=== PATIENT | male | born 1955 | race Caucasian/White ===

== ENCOUNTER → 2019-03-20 | Emergency (ER) | payer OTHER ==
[~2019-03-20] VITALS: Ht 190.5 cm; Wt 107.0 kg
[~2019-03-20] MED LIST: LIDOCAINE HCL 1% LOCAL INJ 20 ML VIAL INJ ONE; MULTI-VITAMIN1 EACH PO; TETANUS/DIPHTHERIA TOX ADULT 0.5 ML SYR IM ONE
--- OUTSIDE RECORDS SUMMARY | 2019-03-20 12:16 | XMS REPORT | Summary of Care ---
Author Author JEFF LARSEN N.P. Organization Unknown Address Unknown Phone Unavailable Care Team Providers Care Fitness Coach Name Role Phone JEFF LARSEN N.P. 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 * Quantity: 20 Refills: 0 LARSEN N.P., JEFF * Start : 01-Nov-2018 Active Ciprofloxacin HCl - 500 MG Oral Tablet TAKE 1 TABLET TWICE DAILY. * Quantity: 28 Refills: 0 LARSEN N.P., JEFF * Start : 07-Nov-2018 Active Pepto-Bismol 262 MG Oral Tablet TAKE ONE TAB ORALLY ONCE OR TWICE A DAY TO PREVENT TRAVELERS' DIARRHEA * Quantity: 1 Refills: 0 LARSEN N.P., JEFF * Start : 07-Nov-2018 Active Allergies and Adverse Reactions Name Dates Details No Known Drug Allergies (Allergy) Status: Active Past Medical History Name Dates Details History of No significant past medical history Status: Resolved Procedures Procedure Dates Details [QH] LIPID PANEL WITH REFLEX TO DIRECT LDL Date: 01-Nov-2018 [QL] CMP W/EGFR Date: 01-Nov-2018 [QL] TSH, 3RD GENERATION W/REFLEX TO FT4 Date: 01-Nov-2018 [QL] CBC (INCLUDES DIFF/PLT) Date: 01-Nov-2018 [QL] PSA, TOTAL Date: 01-Nov-2018 Immunization Name Dates Details Immunizations not documented Social History Name Dates Details - Status: Name Dates Details Former smoker Vital Signs Date Test Result Details [id number] BP Systolic 127 mm[Hg] Status: Comments: Location: LUE; Position: Sitting BP Diastolic 67 mm[Hg] Status: Comments: Location: LUE; Position: Sitting Height 75 in Status: Weight 240.0625 lb Status: Body Mass Index Calculated 30.01 kg/m2 Status: Body Surface Area Calculated 2.37 m2 Status: Temperature 98.7 f Status: Comments: Method: Temporal Heart Rate 77 /min Status: Respiration Rate 14 /min Status: Physical Findings 0 Status: Comments: Alcohol Screen - How many times in the past yr have you had 5 (for M) or 4 (for F) or 4 (for all > 65yrs) or more drinks in a day? [id number] BP Systolic 127 mm[Hg] Status: Comments: Location: LUE; Position: Sitting BP Diastolic 76 mm[Hg] Status: Comments: Location: [facility] [place]; Position: Sitting Height 75 in Status: Weight 236.3125 lb Status: Body Mass Index Calculated 29.54 kg/m2 Status: Body Surface Area Calculated 2.36 m2 Status: Temperature 97.9 f Status: Comments: Method: Temporal Heart Rate 86 /min Status: Respiration Rate 12 /min Status: Physical Findings 0 Status: Comments: Alcohol Screen - How many times in the past yr have you had 5 (for M) or 4 (for F) or 4 (for all > 65yrs) or more drinks in a day? [id number]-Rpx-[id number]:17 Physical Findings 3 Status: Comments: PHQ-9 Adult Depression Screening Results Date Description Value Details Results not documented Plan of Care Name Dates Details Planned Observations Planned Goals not documented Interventions Provided Medication Changes* Ciprofloxacin HCl - 500 MG Oral Tablet - Start * Pepto-Bismol 262 MG Oral Tablet - Start Plan* Gently squeeze towards the center of the boil after using a clean washcloth and hot tap-water for 5-10 min. * Leave drsg intact today (re-enforce w/ more gauze if needed) * OTC IBU 200 MG / TAB 3-4 TABS 3 times a day for 3-5 days. * Remove drsg and packing strip prior to shower MONDAY [tomorrow] nite. * Allow the warm water to run over the wound * wash OVER the wound not INTO the wound * apply dry gauze and/or Telfa as long as wound is open and/or draining. * follow-up if needed next week. Instructions Name Dates Details Instructions not documented Encounters Appointment; JEFF LARSEN NP Encounter Diagnosis: Problem not documented On: 01-Nov-2018 13:45 Appointment; JEFF LARSEN NP Encounter Diagnosis: Problem not documented On: 07-Nov-2018 11:00
--- NOTE | 2019-03-20 14:06 | Diagnostic Imaging Report ---
Exam: Left hand 3 views History: Laceration to index finger, concern for foreign body Comparison: None. Findings: No acute, displaced fracture or dislocation. Joint spaces are well-maintained. No definite soft tissue defect or radiopaque foreign body. Impression: No acute osseous abnormality. No radiopaque soft tissue foreign bodies. Signed by: Dr. Rick Beckman M.D. on 03/20/2019 2:02 PM
== END | disposition home or self-care (01) ==
LOC: ER 12:13
DX: S61.412A Laceration without foreign body of left hand, initial encounter (principal); S66.321A Laceration of extensor muscle, fascia and tendon of left index finger at wrist and hand level, initial encounter
CPT/HCPCS: 99284

== ENCOUNTER → 2019-03-26 | Day surgery (SDC) | payer OTHER ==
[~2019-03-26] MED LIST changes: +BACITRACIN 50,000 UNIT VIAL ONE; +BUPIVACAINE HCL 0.5% INJ 30 ML VIAL INJ ONE; +CEFAZOLIN SOD 1 GM/NS 50ML 50 ML IV ONE; +DEXAMETHASONE SOD PHOS INJ 4 MG/ML VIAL ONE; +FENTANYL CITRATE/PF 100MCG/2 ML INJ ONE; -LIDOCAINE HCL 1% LOCAL INJ 20 ML VIAL INJ ONE; +LIDOCAINE HCL 2% LOCAL INJ 5 ML SDV VIAL INJ ONE; +MIDAZOLAM HCL 2 MG/2 ML VIAL ONE; +MUPIROCIN 2% OINT 22 GM TUBE ONE; +ONDANSETRON HCL INJ 2MG/ML 2ML 2 MG/ML VIAL ONE; +PROPOFOL IV EMULSION 10 MG/ML 20 ML VIAL ONE; +SEVOFLURANE INHAL SOLN 250 ML PEN BTL ONE; -TETANUS/DIPHTHERIA TOX ADULT 0.5 ML SYR IM ONE
--- OUTSIDE RECORDS SUMMARY | 2019-03-26 08:32 | XMS REPORT | Summary of Care ---
Author Author Krys Reveles M.A. Organization Unknown Address [facility] Phone Unavailable Care Team Providers Care Pocket Operator Name Role Phone NII HORAN M.D. 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, A09) Status: Active Medications Name Dates Details Advil 200 MG Oral Capsule as needed Active Multivitamins CAPS TAKE 1 CAPSULE DAILY * Refills: 0 Active Allergies and Adverse Reactions Name Dates Details No Known Drug Allergies (Allergy) Status: Active Past Medical History Name Dates Details History of No significant past medical history Status: Resolved Procedures Procedure Dates Details Procedures not documented Immunization Name Dates Details tetanus toxoid, adsorbed on: Oct-2013 Social History Name Dates Details - Status: Name Dates Details Former smoker Vital Signs Date Test Result Details [id number] BP Systolic 121 mm[Hg] Status: Comments: Location: E; Position: Sitting BP Diastolic 67 mm[Hg] Status: Comments: Location: RUE; Position: Sitting Height 75 in Status: Weight 236 lb Status: Body Mass Index Calculated 29.5 kg/m2 Status: Body Surface Area Calculated 2.35 m2 Status: Temperature 98.1 f Status: Comments: Method: Oral Respiration Rate 16 /min Status: Heart Rate 70 /min Status: Results Date Description Value Details Results not documented Plan of Care Name Dates Details Planned Observations Planned Goals not documented Instructions Name Dates Details Instructions not documented Encounters Appointment; JEFF LARSEN NP Encounter Diagnosis: Problem not documented On: 01-Nov-2018 13:45 Appointment; JEFF LARSEN NP Encounter Diagnosis: Problem not documented On: 07-Nov-2018 11:00 Appointment; NII HORAN M.D. Encounter Diagnosis: Problem not documented On: 20-Mar-2019 11:30
--- OUTSIDE RECORDS SUMMARY | 2019-03-26 08:32 | XMS REPORT ---
[facility] Address Unknown Phone Unavailable Care Team Providers Care Medical Doctor Md Name Role Phone Eric SPENCER Unavailable Unavailable Problems This patient has no known problems. Allergies, Adverse Reactions, Alerts This patient has no known allergies or adverse reactions. Medications This patient has no known medications. Results Test Description Test Time Test Comments Text Results Atomic Results Result Comments HAND 3+ VIEWS LEFT 2019-03-20 14:01:00 [place] [address] Patient Name: DONNIE EPPERSON MR #: [id number] : 1955 Age/Sex: 63/M Req #: [id number] Adm Physician: Ordered by: TANIYA CHRISTINA SEAMAN Report #: [id number] Location: ER Room/Bed: Procedure: [id number] DX/HAND 3+ VIEWS LEFT Exam Date: 03/20/19 Exam Time: 1310 REPORT STATUS: Signed Exam: Left hand 3 views History: Laceration to index finger, concern for foreign body Comparison: None. Findings: No acute, displaced fracture or dislocation. Joint spaces are well-maintained. No definite soft tissue defect or radiopaque foreign body. Impression: No acute osseous abnormality. No radiopaque soft tissue foreign bodies. Signed by: Dr. Donnie Gallego M.D. on 03/20/2019 2:02 PM Dictated By: RUSSELL GALLEGO MD 01 Transcribed By: ZEKE on 03/20/191401 COPY TO: TANIYA CHRISTINA NP
[2019-03-26 12:05] VITALS: BP 121/85
--- NOTE | 2019-03-26 15:25 | Operative Report ---
DATE OF PROCEDURE: 03/26/2019 SURGEON: Tani Liu MD PREOPERATIVE DIAGNOSIS: Laceration of left index finger extensor tendon. POSTOPERATIVE DIAGNOSES: 1. Laceration of left index finger EIP tendon. 2. Laceration of left index finger EDC tendon. PROCEDURE: 1. Repair of left index finger EIP tendon. 2. Repair of left index finger EDC tendon. ANESTHESIA: General. HISTORY: The patient is a 63-year-old [id number] male, who sustained a laceration on the dorsal aspect of the left index finger MP joint approximately one week ago. He was seen at an emergency room and was noted to have no active extension of the index finger. Risks, benefits, and alternatives of surgery were discussed with the patient. He is prepared to undergo the procedure as outlined. PROCEDURE IN DETAIL: The patient was marked preoperatively in the holding area. He was brought to the operating theater and after the induction of adequate general anesthesia, he was prepped and draped in a supine position and a time-out was performed. The procedure was begun by marking out the laceration and extending it proximally and distally in a curvilinear fashion. The left upper extremity was exsanguinated and the tourniquet was inflated to a pressure of 250 mmHg. The previously placed sutures were removed and then the incision was opened and then using a 15 blade, the incisions proximally and distally were incised through the skin and subcutaneous tissues, venous tributaries were controlled with bipolar cautery. Wide blunt dissection then continued and it was fairly evident that the complete extensor tendon mechanism had been sharply lacerated, the joint capsule had been lacerated as well and the joint was open with a large amount of hematoma. The hematoma was removed and then the joint space was copiously irrigated with bacteriostatic saline. The joint capsule was then repaired using 4-0 Vicryl suture in an interrupted fashion. At this point, the proximal edge of the EIP and the EDC tendon were retrieved and brought distally over the MP joint. With the finger in full extension, the distal aspect of the EIP and the EDC tendons were retrieved as well. Using 3-0 Vicryl in a bssvnn-jy-suidl fashion, repair of the two extensor tendons was performed. Once the repair had been affected, the finger was placed through a range of motion and there was good gliding of the tendon and no gapping of the repair. The wound was irrigated once again with bacteriostatic saline and closed with a 5-0 nylon in an interrupted horizontal mattress fashion and a Marcaine field block was performed at the operative site. The tourniquet was deflated, all the fingers pinked up nicely and the wound was noted to be hemostatic. Xeroform gauze, Bactroban ointment and sterile dressings were applied. A fiberglass splint was fashioned on the volar aspect of the forearm and hand maintaining the wrist in a modest amount of extension and the MPs at approximately 60-70 degrees of flexion and the IPs neutral. This was held in place with a loosely wrapped Deng wrap. The patient tolerated the procedure well and was brought to recovery room in satisfactory condition and discharged with a postoperative instruction sheet as well as a followup appointment. MD LEA Porter/CHERRI /[id number]
== END | disposition home or self-care (01) ==
LOC: OR 08:26
PROVIDERS: ATTEND Plastic Surgery
DX: S66.321A Laceration of extensor muscle, fascia and tendon of left index finger at wrist and hand level, initial encounter (principal); S61.211A Laceration without foreign body of left index finger without damage to nail, initial encounter; R06.83 Snoring; X58.XXXA Exposure to other specified factors, initial encounter; Z01.810 Encounter for preprocedural cardiovascular examination; Z87.891 Personal history of nicotine dependence
CPT/HCPCS: 26418 ×2; 93005; J0690; J1100; J2001; J2250; J2405; J2704

== ENCOUNTER 2019-05-10 10:53 | Outpatient (RCR) | payer OTHER ==
[~2019-05-10 10:53] MED LIST changes: -BACITRACIN 50,000 UNIT VIAL ONE; -BUPIVACAINE HCL 0.5% INJ 30 ML VIAL INJ ONE; -CEFAZOLIN SOD 1 GM/NS 50ML 50 ML IV ONE; -DEXAMETHASONE SOD PHOS INJ 4 MG/ML VIAL ONE; -FENTANYL CITRATE/PF 100MCG/2 ML INJ ONE; -LIDOCAINE HCL 2% LOCAL INJ 5 ML SDV VIAL INJ ONE; -MIDAZOLAM HCL 2 MG/2 ML VIAL ONE; -MUPIROCIN 2% OINT 22 GM TUBE ONE; -ONDANSETRON HCL INJ 2MG/ML 2ML 2 MG/ML VIAL ONE; -PROPOFOL IV EMULSION 10 MG/ML 20 ML VIAL ONE; -SEVOFLURANE INHAL SOLN 250 ML PEN BTL ONE
== END 2019-05-15 ==
LOC: OT 10:53
PROVIDERS: ATTEND Plastic Surgery
DX: S66.321A Laceration of extensor muscle, fascia and tendon of left index finger at wrist and hand level, initial encounter (principal); M25.542 Pain in joints of left hand; M25.642 Stiffness of left hand, not elsewhere classified; R53.1 Weakness; M25.442 Effusion, left hand

== ENCOUNTER 2019-06-14 10:54 | Outpatient (RCR) | payer MEDICARE, OTHER | END 2019-06-15 | LOC: OT 10:54 | PROVIDERS: ATTEND Plastic Surgery | DX: S66.321A Laceration of extensor muscle, fascia and tendon of left index finger at wrist and hand level, initial encounter (principal); M25.542 Pain in joints of left hand; M25.642 Stiffness of left hand, not elsewhere classified; R53.1 Weakness; M25.442 Effusion, left hand ==

== ENCOUNTER 2019-07-11 10:58 | Outpatient (RCR) | payer MEDICARE | END 2019-07-15 | LOC: OT 10:58 | PROVIDERS: ATTEND Plastic Surgery | DX: S66.321A Laceration of extensor muscle, fascia and tendon of left index finger at wrist and hand level, initial encounter (principal) ==

== ENCOUNTER 2019-07-17 11:02 | Outpatient (RCR) | payer MEDICARE | END 2019-08-15 | LOC: OT 11:02 | PROVIDERS: ATTEND Plastic Surgery | DX: S66.321A Laceration of extensor muscle, fascia and tendon of left index finger at wrist and hand level, initial encounter (principal); M25.542 Pain in joints of left hand; M25.642 Stiffness of left hand, not elsewhere classified; M25.442 Effusion, left hand; R53.1 Weakness ==